=== PATIENT | male | born 1990 | race Caucasian/White ===

== ENCOUNTER 2018-03-02 19:17 | Emergency (ER) | payer OTHER ==
[2018-03-02] MEDS ORDERED: NS 0.9% 1000 ML* 1,000 ML IV ONE ×2 (19:36→20:26)
[2018-03-02] MEDS ORDERED: LORazepam INJ* 2 MG/ML 1 ML VIAL IV PUSH ONE (19:37)
[2018-03-02 20:04] LABS: Hematocrit 45 % (42-52); Hemoglobin 15.6 g/dl (14.0-18.0); Mean Corpuscular HGB Conc 35 g/dl (31-36); Mean Corpuscular Hemoglobin 33 pg (27-31); Mean Corpuscular Volume 94 fL (80-94); Mean Platelet Volume 7.9 um3 (7.4-10.4); Platelet Count 285 10^3/ul (150-450); Red Cell Distribution Width 13 % (10.5-15); White Blood Count 14.2 10^3/ul (3.5-10.8)
[2018-03-02 20:15] LABS: EGFR Non-African American 99.1 (>60)
[2018-03-02 20:29] LABS: ABS Basophils 0.1 10^3/ul (0-0.2); ABS Eosinophils 0.1 10^3/ul (0-0.6); ABS Lymphocytes 1.5 10^3/ul (1.0-4.8); ABS Monocytes 1.8 10^3/ul (0-0.8); ABS Neutrophils 10.7 10^3/ul (1.5-7.7); ABS Nucleated RBC 0 10^3/ul; Eosinophil % 0.9 % (0-6); Lymphocyte % 10.9 % (25-47); Nucleated Red Blood Cells % 0
[2018-03-02] MEDS ORDERED: Lidocaine 2% VISCOUS* 15 ML UDC PO ONE (21:17)
[2018-03-02] MEDS ORDERED: Al Hydrox/Mg Hydrox/Simet LIQ* 30 ML UDC PO ONE (21:17)
--- NOTE | 2018-03-02 21:46 | ED ---
Darrick Oshea Elizabeth, scribed for Giovanna Bernstein MD on 03/02/18 at 1942 . HPI Chest Pain - HPI Summary HPI Summary: This patient is a 28 year old M BIBA to [facility] with a chief complaint of burning upper chest pain since 18:00 today. 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 The patient denies any radiation of the pain. Patient reports shortness of breath, chills, lightheadedness, difficulty standing, and numbness in his arms. The patient rates the pain was 10/10 in severity but reports that his pain has resolved since arrival to the ED. Symptoms aggravated by nothing. Symptoms alleviated by nothing. The patient has hx of asthma and chronic leg infection. - History of Current Complaint Chief Complaint: EDChestPainROMI Time Seen by Provider: 03/02/18 19:28 Hx Obtained From: Patient Onset/Duration: Started Hours Ago - 1.5 hours, Atraumatic, Resolved Timing: Constant, Lasting Hours Initial Severity: Severe Current Severity: Mild Pain Intensity: 1 Pain Scale Used: 0-10 Numeric Chest Pain Location: Upper Sternal Chest Pain Radiates: No Character: Burning Aggravating Factor(s): Nothing Alleviating Factor(s): Nothing Associated Signs and Symptoms: Positive: Chest Pain, Numbness - in arms, Weakness, Shortness of Breath, Chills, Lightheadedness, Other: - difficulty standing - Allergy/Home Medications Allergies/Adverse Reactions: Allergies Allergy/AdvReac Type Severity Reaction Status Date / Time No Known Allergies Allergy Verified 03/02/18 19:29 Home Medications: Home Medications Albuterol Sulfate [Ventolin Hfa] 1 puff INH DAILY PRN 03/02/18 [History Confirmed 03/02/18] PMH/Surg Hx/FS Hx/Imm Hx Endocrine/Hematology History: Denies: Hx Diabetes Respiratory History: Reports: Hx Asthma Denies: Hx Chronic Obstructive Pulmonary Disease (COPD) Opthamlomology History: Denies: Hx Legally Blind EENT History: Denies: Hx Deafness - Surgical History Surgery Procedure, Year, and Place: none Infectious Disease History: No Infectious Disease History: Denies: Traveled Outside the [place] in Last 30 Days - Family History Known Family History: Positive: None - Social History Alcohol Use: Occasionally Substance Use Type: Reports: Marijuana Smoking Status (MU): Current Every Day Smoker Review of Systems Positive: Chills Negative: Epistaxis Positive: Chest Pain - upper sternal pain Positive: Shortness Of Breath Neurological: Other - lightheadedness Positive: Weakness - in legs, Numbness - in arms All Other Systems Reviewed And Are Negative: Yes Physical Exam - Summary Physical Exam Summary: VITAL SIGNS: Reviewed. GENERAL: Patient is a well-developed and nourished MALE who is lying comfortable in the stretcher. Patient is not in any acute respiratory distress. HEAD AND FACE: No signs of trauma. No ecchymosis, hematomas or skull depressions. No sinus tenderness. EYES: PERRLA, EOMI x 2, No injected conjunctiva, no nystagmus. EARS: Hearing grossly intact. Ear canals and tympanic membranes are within normal limits. MOUTH: Oropharynx within normal limits. NECK: Supple, trachea is midline, no adenopathy, no JVD, no carotid bruit, no c- spine tenderness, neck with full ROM. CHEST: Symmetric, no tenderness at palpation LUNGS: Clear to auscultation bilaterally. No wheezing or crackles. CVS: Regular rate and rhythm, S1 and S2 present, no murmurs or gallops appreciated. ABDOMEN: Soft, non-tender. No signs of distention. No rebound no guarding, and no masses palpated. Bowel sounds are normal. EXTREMITIES: FROM in all major joints, no edema, no cyanosis or clubbing. NEURO: Alert and oriented x 3. No acute neurological deficits. Speech is normal and follows commands. SKIN: Dry and warm Triage Information Reviewed: Yes Vital Signs On Initial Exam: Initial Vitals Resp BP 18 161/95 03/02/18 19:20 03/02/18 19:20 Vital Signs Reviewed: Yes Diagnostics - Vital Signs Vital Signs Temp Pulse Resp BP Pulse Ox 03/02/18 19:24 15 03/02/18 19:22 97.6 F 90 24 161/95 99 03/02/18 19:20 18 161/95 - Laboratory Result Diagrams: 03/02/18 19:41 03/02/18 19:41 Lab Statement: Any lab studies that have been ordered have been reviewed, and results considered in the medical decision making process. - EKG 19:21 Cardiac Rate: NL - at 76 bpm EKG Rhythm: Sinus Rhythm EKG Interpretation: NSR at 76bpm, normal axis, normal intervals, no ischemic changes Re-Evaluation - Re-Evaluation 1st re-eval Re-Evaluation Time: 21:02 Change: Improved Comment: Patient feels better after receiving 2 liters of lV fluids. Patient is afebrile. Chest Pain Course/Dx - Course Course Of Treatment: This patient is a 28 year old M with hx of asthma reporting burning upper chest pain, lightheadedness and shortness of breath since 18:00 today. An EKG reveals NSR at 76 bpm, nml axis, nml intervals, no ischemic changes. Test results with no significant abnormalities. In the ED course the patient was given Ativan and IV fluids. Patient feels better and patient is afebrile. Patients HTN was monitored continuously. Patient is advised to increase his fluid intake, rest at home tomorrow, and follow up with his primary care physician concerning HTN in 2 days. Patient will be discharged home with dx of mild rhabdomyolysis and HTN. The patient is agreeable with this plan. - Diagnoses Provider Diagnoses: Rhabdomyolysis, Hypertension Discharge - Sign-Out/Discharge Documenting (check all that apply): Discharge/Admit/Transfer - Discharge Plan Condition: Stable Disposition: HOME Discharge Disposition Comment: discharge home Patient Education Materials: Hypertension (ED), Rhabdomyolysis (ED) Referrals: [facility] [place] PH[facility]IAN REFERRAL [Outside] - 2 Days (Follow up with primary care physician in 2 days) Additional Instructions: Follow up with primary care physician in 2-3 days concerning hypertension. Increase fluid intake and rest at home tomorrow. Return to the emergency department with any new or worsening symptoms. The documentation as recorded by the Darrick garrett Elizabeth accurately reflects the service I personally performed and the decisions made by me, Giovanna Bernstein MD.
[2018-03-02 22:38] VITALS: BP 166/96
== END 2018-03-02 22:37 | disposition home or self-care (01) ==
LOC: ED 19:17
DX: M62.82 Rhabdomyolysis (principal); I10 Essential (primary) hypertension; R07.9 Chest pain, unspecified; F17.200 Nicotine dependence, unspecified, uncomplicated
CPT/HCPCS: 36415; 80053; 82550; 84484; 85025; 93005; 96361; 96374; 99283; A9270-GY; J2060